=== PATIENT | female | born 1950 | race African-American/Black ===

== ENCOUNTER 2016-06-22 03:50 | Inpatient (IN) | payer OTHER, MEDICAID ==
[2016-06-22 04:53] VITALS: BP 120/67
[2016-06-22] MEDS ORDERED: Sodium Chloride 0.9% 1,000 ML IV SCH (06:45)
[2016-06-22 08:08] LABS: HEMATOCRIT 25.4 % (35.0-45.0); HEMOGLOBIN 8.5 gm/dL (11.7-15.5); MEAN CELL VOLUME 75.2 fl (81-100); MEAN CORPUSCULAR HEMOGLOBIN 25.1 pg (27.0-31.0); MEAN CORPUSCULAR HGB CONC 33.4 pg (28.0-36.0); MEAN PLATELET VOLUME 7.6 fl; PLATELET COUNT 259 Th/cmm (150-400); RED BLOOD COUNT 3.38 Mil/cmm (3.80-5.10); RED CELL DISTRIBUTION WIDTH 20.5 % (11.5-20.0); WHITE BLOOD COUNT 11.4 Th/cmm (4.8-10.8)
[2016-06-22] MEDS: HYDROmorphone 1 mg/mL 1mL Syr IVP PRN ×2 (08:15→12:41)
[2016-06-22 08:27] LABS: ALB/GLOB RATIO 1.3 (1.0-1.8); ALKALINE PHOSPHATASE 74 U/L (34-104); ANION GAP 5.7 (7.0-16.0); BILIRUBIN,TOTAL 0.6 mg/dL (0.3-1.0); BUN - UREA NITROGEN 9 mg/dL (7-25); CALCIUM SERUM 8.8 mg/dL (8.6-10.3); CARBON DIOXIDE 22.2 mEq/L (21.0-31.0); CHLORIDE 112 mEq/L (98-107); CREATININE - SERUM 0.9 mg/dL (0.6-1.2); GLUCOSE 89 mg/dL (70-105); POTASSIUM SERUM 3.9 mEq/L (3.5-5.1); SGOT 35 U/L (13-39); SGPT/ALT 19 U/L (7-52); SODIUM SERUM 136 mEq/L (136-145)
[2016-06-22 09:27] LABS: ANISOCYTOSIS 1+; BAND NEUTROPHILE 4 % (0-10); EOSINOPHIL 1 % (0-5); METAMYELOCYTE 1 % (0-0); MICROCYTOSIS 2+; NEUTROPHILS 66 % (40-80); PLATELET ESTIMATE ADEQUATE (NORMAL); PLATELET MORPHOLOGY NORMAL (NORMAL); POIKILOCYTOSIS 1+; POLYCHROMASIA 1+; TOTAL CELLS COUNTED 100
--- NOTE | 2016-06-22 14:18 | Diagnostic Imaging Report ---
CHEST X-RAY: AP view INDICATION: Pneumonia COMPARISON: None FINDINGS: Increased interstitial lung markings are noted. Bilateral lower lung zone subsegmental atelectasis versus scarring is noted. No focal consolidation or pleural effusions. Mild cardiomegaly is noted. Degenerative changes of the spine are noted. IMPRESSION: Increased interstitial lung markings, nonspecific, and may be due to chronic lung changes. Bilateral lower lung zone linear densities are seen which may be due to subsegmental atelectasis versus scarring. No focal consolidation identified. Mild cardiomegaly.
--- NOTE | 2016-06-22 18:53 | History & Physical ---
CHIEF COMPLAINT: Leg and back pain. HISTORY OF PRESENT ILLNESS: This is the case of a 65-year-old -Russian female who went to Emergency Room of [facility] secondary to she was feeling chest pressure and tightness and pain in legs and back. On the examination, the patient referred that she has sickle-cell disease and she was treated for pneumonia and she finished treatment 4 days ago. The patient was transferred to this hospital to continue with treatment. PAST MEDICAL HISTORY: The patient has past medical history of sickle-cell disease, rheumatoid arthritis and hypertension. SOCIAL HISTORY: The [facility]. She denies alcohol or drug use. PAST SURGICAL HISTORY: The patient had multiple back surgeries. This is the second time that she ____ in the same place. ALLERGIES: THE PATIENT IS ALLERGIC TO CODEINE: FAMILY HISTORY: Noncontributory. REVIEW OF SYSTEMS: LUNGS: The patient referred chest tightness and some shortness of breath. HEART: Regular in rhythm. ABDOMEN: Noncontributory. EXTREMITIES: The patient referred leg and back pain. PHYSICAL EXAMINATION: GENERAL: Does reveal a fairly nourished and developed -Russian female, awake, alert, in no acute distress. HEENT: Head is normocephalic and atraumatic. Nose: No evidence of nasal obstruction. Ears: No evidence of any discharge. Mouth: Fairly kept. LUNGS: Bilateral air entry. No wheezing, no crackles. HEART: Regular rate and rhythm. ABDOMEN: Soft, nontender. Bowel sounds present. EXTREMITIES: Pain on movement, no edema. IMPRESSION: 1. Pneumonia. 2. Sickle cell crisis. 3. Rheumatoid arthritis. PLAN: 1. The patient will be admitted in the medical surgical floor. 2. Continue with home medications. 3. Ceftriaxone IV daily. 4. Dilaudid for pain management. 5. Diet, regular diet. 6. CBC, CMP at a.m. JOB# [id number]
--- NOTE | 2016-06-22 20:56 | Admit Criteria Form ---
Admit Criteria Forms - Admit Criteria Diagnosis: PNEUMONIA, COMMUNITY ACQUIRED Clinical Indications for Admission to Inpatient Care ( Place 'X' for any and all applicable criteria): Admission is indicated for ANY ONE of the following (1)(2)(3): [ ]I. Hypoxemia indicated by ANY ONE of the following: [ ]a) Oxygen saturation less than 90% while breathing room air [ ]b) PO2 less than 60 mm Hg (8.0 kPa) while breathing room air [ ]c) Chronic lung disease with significant deterioration from baseline oxygenation [X]II. Appropriate diagnostic testing and treatment unavailable in outpatient or recovery facility (eg,testing or infection control measures unavailable(10) [ ]III. Moderate-risk or high-risk category patients (Pneumonia Severity Index (PSI) class IV or V, or CURB-65 score of 3 or greater). [ ]IV. Outpatient treatment failure as indicated by ANY ONE of the following(9) : [ ]a) Failure to respond to antibiotic (eg, resistant organism) [ ]b) Clinically significant adverse effects from medication (eg, vomiting) [ ]c) Complications of pneumonia (eg, empyema, bacteremia) [ ]d) Significant worsening of comorbid cond necessitating inpatient care (eg, chronic heart failure) [ ]V. Intermediate-risk category patients (eg, PSI class III or CURB-65 score 2) who do not improve with initial therapy and observation. [ ]. Immunocompromised patients (eg, AIDS, chronic steroid use) at moderate or high risk based on clinical evaluation. [ ]VII. Complicated pleural effusions (eg, exudative, loculated) [ ]VIII.Hemodynamic instability [ ] IX. Altered mental status that is severe or persistent. [ ]X. Dehydration that is severe or persistent. [ ]XI. Bacteremia [ ]XII. Respiratory finding (eg. tachypnea) that do not respond to outpatient or observation care treatment Extended stay beyond goal length of stay may be needed for (20) [ ]a) Unclear diagnosis [ ]b) Pleural disease [ ]c) Severe pneumonia or treatment failure (25 [ ]d) Respiratory failure (anticipate invasive or noninvasive ventilatory support) [ ]e) Abnormal serum electrolytes (serum Na concentration less than 135 mEq/L (mmol/L) (32)(33) [ ]f) Clinically significant comorbid illness (eg, heart failure, atrial fibrillation with rapid heart rate, alcohol withdrawal, renal insufficiency)(34)(35) [ ]g) Comorbid acute exacerbation of COPD(36) [ ]h) Concomitant diagnosis of malignancy that may be associated with malnutrition, immunologic impairment, or bronchial obstruction. [ ]i) Concomitant altered mental status [ ]j) Culture-identified Gram-negative or antibiotic-resistant organism (eg, Pseudomonas, methicillin-resistant Staphylococcus aureus)(30) [ ]k) Healthcare-associated pneumonia The original [facility] content created by [employer] has been revised. The portions of the content which have been revised are identified through the use of italic text or in bold, and [facility] has neither reviewed nor approved the modified material. All other unmodified content is copyright [facility] [employer]. Please see references footnoted in the original [facility] [employer] edition 2016 Admit Criteria Met?: Yes
[2016-06-22] MEDS ORDERED: cefTRIAXone 1 GM in Sodium Chloride 0.9% 100 ML IV SCH (22:00)
== END 2016-06-22 19:30 | disposition home or self-care (01) | DRG 193 ==
LOC: MSI 03:50
PROVIDERS: ADMIT General Practice; ATTEND General Practice
DX: J18.9 Pneumonia, unspecified organism (principal); D57.00 Hb-SS disease with crisis, unspecified; I10 Essential (primary) hypertension; M06.9 Rheumatoid arthritis, unspecified; Z88.5 Allergy status to narcotic agent; M54.9 Dorsalgia, unspecified
CPT/HCPCS: 36415-UA; 71010-TC; 80053-TC; 85007-TC; 85027-TC; J0696; J1170; J7030; Z7610